=== PATIENT | male | born 1960 | race Caucasian/White ===

== ENCOUNTER → 2019-05-23 09:08 | Outpatient (BNVA) | payer BC, SELFPAY | PROVIDERS: Family Provider Family Medicine; PCP Family Medicine; Referring Provider Internal Medicine Rheumatology; Visit Provider Internal Medicine Rheumatology | DX: L40.50 Arthropathic psoriasis, unspecified (principal); Z79.899 Other long term (current) drug therapy; Z11.59 Encounter for screening for other viral diseases; Z72.89 Other problems related to lifestyle; M77.9 Enthesopathy, unspecified; M06.4 Inflammatory polyarthropathy; M72.2 Plantar fascial fibromatosis | CPT/HCPCS: 36415; 80076; 82565; 85651; 86140; 86704; 99214 ==

== ENCOUNTER → 2019-05-23 10:34 | Outpatient (BNVA) | payer BC, SELFPAY | PROVIDERS: Family Provider Family Medicine; PCP Family Medicine; Referring Provider Internal Medicine Rheumatology; Visit Provider Internal Medicine Rheumatology | DX: Z79.899 Other long term (current) drug therapy (principal); Z11.59 Encounter for screening for other viral diseases; L40.50 Arthropathic psoriasis, unspecified; Z71.89 Other specified counseling; M77.9 Enthesopathy, unspecified; M06.4 Inflammatory polyarthropathy | CPT/HCPCS: 85025 ==

== ENCOUNTER → 2019-08-23 14:05 | Outpatient (BNVA) | payer BC, SELFPAY | PROVIDERS: Family Provider Family Medicine; PCP Family Medicine; Visit Provider Internal Medicine Rheumatology | DX: L40.50 Arthropathic psoriasis, unspecified (principal); Z79.899 Other long term (current) drug therapy; R74.0 Nonspecific elevation of levels of transaminase and lactic acid dehydrogenase [LDH]; E11.9 Type 2 diabetes mellitus without complications; Z79.84 Long term (current) use of oral hypoglycemic drugs | CPT/HCPCS: 99214 ==

== ENCOUNTER 2019-11-05 14:00 | Outpatient (CLI) | payer BC, SELFPAY ==
--- NOTE | 2019-11-05 14:05 | CT_ITS ---
WS: [id number] CT LUMBAR SPINE, noncontrast. HISTORY: LOW BACK PAIN TECHNIQUE: Contiguous 2.5 mm axial imaging are performed. Sagittal and coronal reformats are submitte d and reviewed. All CT scans at [facility] use at least one of these dose optimization te chniques: automated exposure control; mA and/or kV adjustment per patient size (includes targeted exa ms where dose is matched to clinical indication); or iterative reconstruction. IV contrast: None DLP: 1988.17 mGycm COMPARISON: Lumbar spine radiograph 7 2020 S1 vertebral body is partially lumbarized. There are 5 nonrib-bearing lumbar vertebral bodies and a p artially lumbarized S1 segment. Posterior alignment is normal. No fractures. L1-2: Normal. L2-3: Normal. L3-4: Mild annular disc bulging with mild encroachment upon the thecal sac but no significant stenosi s. L4-5: Mild annular disc bulging. Mild ligamentum flavum disease and facet arthritis. Resulting in mil d central, subarticular recess and bilateral foraminal stenosis. L5-S1: Mild annular disc bulging, slightly asymmetric to the RIGHT. RIGHT subarticular and foraminal disc protrusion is suspected. There is contact on the S1 nerve roots, greatest on the RIGHT. There is mild central and subarticular recess and foraminal stenosis. Rudimentary S1-S2 disc and lumbarized Mild atherosclerosis aorta. LEFT S1 posterior elements. CT/CT lumbar spine wo con* [id number] IMPRESSION: 1. S1 is partially lumbarized. 2. Mild central, subarticular recess and bilateral foraminal stenosis at L4-5 and L5-S1. 3. Disc protrusion appears to be contacting the RIGHT S1 nerve root. Disc encr oaches into the RIGHT subarticular recess and proximal foramen.
== END 2019-11-05 14:01 | disposition home or self-care (01) ==
LOC: RADWPI 14:03
PROVIDERS: Family Provider Family Medicine; PCP Family Medicine; Visit Provider Nurse Practitioner
DX: M54.5 Low back pain (principal); Q76.49 Other congenital malformations of spine, not associated with scoliosis; M48.061 Spinal stenosis, lumbar region without neurogenic claudication; M48.07 Spinal stenosis, lumbosacral region; M53.3 Sacrococcygeal disorders, not elsewhere classified
CPT/HCPCS: 72131

== ENCOUNTER → 2021-07-28 14:05 | Outpatient (BNVA) | payer MEDICARE, SELFPAY | PROVIDERS: Family Provider Family Medicine; PCP Family Medicine; Visit Provider Internal Medicine | DX: I48.91 Unspecified atrial fibrillation (principal); I10 Essential (primary) hypertension; E66.9 Obesity, unspecified; Z68.34 Body mass index [BMI] 34.0-34.9, adult; E11.9 Type 2 diabetes mellitus without complications; G47.30 Sleep apnea, unspecified; Z79.4 Long term (current) use of insulin | CPT/HCPCS: 99214 ==

== ENCOUNTER → 2022-04-26 15:23 | Outpatient (BNVA) | payer MEDICARE, SELFPAY | PROVIDERS: Family Provider Family Medicine; PCP Family Medicine; Visit Provider Internal Medicine | DX: I10 Essential (primary) hypertension (principal); E66.9 Obesity, unspecified; Z68.35 Body mass index [BMI] 35.0-35.9, adult; G47.30 Sleep apnea, unspecified; E11.9 Type 2 diabetes mellitus without complications; Z79.4 Long term (current) use of insulin; I48.91 Unspecified atrial fibrillation | CPT/HCPCS: 99214 ==

== ENCOUNTER → 2023-02-16 11:10 | Outpatient (BNVA) | payer MEDICARE, SELFPAY | PROVIDERS: Family Provider Family Medicine; PCP Family Medicine; Visit Provider Internal Medicine Cardiovascular Disease | DX: R74.01 Elevation of levels of liver transaminase levels (principal); E11.42 Type 2 diabetes mellitus with diabetic polyneuropathy; Z79.4 Long term (current) use of insulin; G47.30 Sleep apnea, unspecified; I10 Essential (primary) hypertension; E66.9 Obesity, unspecified; I48.91 Unspecified atrial fibrillation; Z79.899 Other long term (current) drug therapy; Z68.34 Body mass index [BMI] 34.0-34.9, adult | CPT/HCPCS: 99213 ==

== ENCOUNTER → 2024-02-13 14:39 | Outpatient (BNVA) | payer MEDICARE, SELFPAY | PROVIDERS: Family Provider Family Medicine; PCP Family Medicine; Visit Provider Internal Medicine Cardiovascular Disease | DX: R07.9 Chest pain, unspecified (principal); R94.31 Abnormal electrocardiogram [ECG] [EKG] | CPT/HCPCS: 93005 ==

== ENCOUNTER 2024-10-16 | Emergency (ER) | payer MEDICARE, SELFPAY ==
--- OUTSIDE RECORDS SUMMARY | 2023-08-12 08:30 | XMS_ITS | Continuity of Care Document ---
Author Organization [facility] Address [address] [place], [place] [id number] CHADD Wang [address] Phone Care Team Providers Care Pharmacy Data Analyst Name Role Phone Mirta Batres Unavailable Unavaila ble Allergies, Adverse Reactions, Alerts Substance Reaction Status Criticality No Known Allergies Active No Inform ation Medications Medication Instructions Dosage Effective Dates (start - stop) Status Comments atorvastatin 40 mg tablet TAKE 1 TABLET BY MOUTH EVERY DAY WITH YOUR EVENING MEAL FOR CHOLESTEROL - Active aspirin 81 mg tablet,delayed release TAKE 1 TABLET BY MOUTH ONCE A DAY DIRECTED - Active Lipitor 10 mg tablet 2019 - No Longer Active Zyrtec 10 mg tablet 020 - No Longer Active Procedures Procedure Date URINALYSIS, AUTO, W/O SCOPE CDL Exam SYST BP LT 130 MM HG Sys bp less 140 DIAST BP < 80 MM HG Moseley bp less 90 WEIGHT RECORDED BODY MASS INDEX DOCD AMNT PAIN NOTED; NONE PRSNT MED LIST DOCD IN RCRD CDL Exam URINALYSIS, AUTO, W/O SCOPE CDL Exam SYST BP >= 140 MM HG6 IT DIAST BP 80-89 MM HG DSCHRG MED/CURRENT MED MERGE WEIGHT RECORDED BODY MASS INDEX DOCD URINALYSIS AUTO W/O SCOPE MED SERV GABRIELLA/WKEND/HOLIDAY OFFICE O/P EST LOW 20-29 MIN SARS & Influenza A & B combo OFFICE O/P EST SF 10-19 MIN CORONAVIRUS AG IA Results Test Name Date and Time Measure Units Reference Range Abnormal Flag Status Comments Panel Description: Urinalysis Final Bilirubin NEG N/A Negative - Large Final Blood NEG N/A Negative - Large Final Glucose NEG mg/dL Negative- >=2000 mg/dL Final Ketones NEG mg/dL Negative - Very Large Final Leukocytes NEG N/A Negative - Large Final Nitrite NEG N/A NEG (normal) - POS Final pH 5.5 N/A NML: 4 - 9; ABNL LOW: 2, 3 ABNL HIGH: 10 or above Final Protein NEG mg/dL Negative - >=300 Final Specific [place] >=1.030 N/A NNL: 1.0 03 - 1.025; ABNL Low: 1.000; ABNL High: 1.030 or abo Final Urobilinogen 0.2 E.U./dL 0.2 - >=8.0 Final Advance Directives Directive Yes / No Effective Date File Name No Information Encounters Encounter Description Practice Location Reason(s) For Visit Diagnoses Date Provider Providers Copied on Encounter [facility], [address] [place] [id number] [place] [address], [address] [place] [address] tel: [phone] [facility] Med CDL (chief complaint) Encounter for examination for driving licenseEncounter for exam of eyes and vision w abnormal findingsBody mass index [BMI] 26.0-26.9, adultElevated blood-pressure reading w/o diagnosis of HTNOverweightICD 4 Yadiel Martinsey. [address] [place] [address], [id number], [place]. tel:[phone] [facility], [address] [place] [address] [id number] [place], [address], [place] tel: [phone] [facility] Med CDL (chief complaint) Encounter for examination for driving licenseBody mass index [BMI] 25.0-25.9, adultEncounter for exam of eyes and vision w abnormal findings 2 [facility]. [address] [place] [address], [id number], [place]. tel: [phone] [facility], [address] [place] [id number] [place] [address], [facility], tel: [phone] Conversion Default- None No Information 1 [facility]. [address] [place] [address], [id number], [place]. tel: [phone] [facility], [address] [place], [place] [id number] [place] [address], [facility], [place] tel: [phone] [facility] Body mass index [BMI] 25.0-25.9, [id number] kixtBSE69Lqnwqmf er for examination for driving [id number] 1 [facility]. [address] [place] [address], [id number], [place]. tel: [phone] [facility], [address] [place] [id number] [place] [address], [facility], [place] tel: [phone] [facility] Body mass index [BMI] 24.0-24.9, [id number] [id number] [id number] vtntqhaZSL36Egqe act with and (suspected) exposure to other viral communicable [id number] 1 Justice He. [address] [place] [address], [id number], [place]. tel:[phone] OFFICE O/P EST LOW 20-29 MIN [facility], [address] [place] [id number] [place] [address], [address], [place] tel: [phone] Conversion Default- None No Information 1 Justice Ying. [address], [id number], [place]. tel:[phone] [facility], [address] [place] [id number] [place] [address], [facility], tel: [phone] [facility] Encounter for screening for other viral [id number] 0 Paul Zamora. [address] [place] [address], [address] [place] [address], . tel:[phone] OFFICE O/P EST SF 10-19 MIN [facility], [address] [place], [place] [id number] [place] [address], [facility], tel: [phone] Conversion Default- None No Information 0 Paul Zamora. [address] [place] [address], [address] [place] [address], . tel:[phone] [facility], [address] [place] [id number] [place] [address], [facility], tel: [phone] [facility] Encounter for examination for driving [id number] mass index [BMI] 24.0-24.9, mopkdISM19Jxomqj ter for immunizationICD1 0 8 [facility]. [address] [place] [address], [address] [place] [address], . tel:[phone] [facility], [address] [place] [id number] [place] [address], [facility], tel: [phone] [facility] Encounter for examination for driving [id number] 6 No Information [facility], [address] [place] [id number] [place] [address], [facility], tel: [phone] [facility] Encounter for examination for driving [id number] 6 No Information [facility], [address] [place] [id number] [place] [address], tel: [phone] [facility] Hyperuricemia 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 [address] [place] [address], [id number], . tel:[phone] [facility], [address] [place] [address] [id number] , [place], [address], tel: [phone] [facility] MrajlkVYI96Yjf back znvlURD19Gxilq jvcfkixNCE36 5 Jayson Hailee. [address] [place] [address], [id number], . [phone] Family History Family Member Type Diagnosis Age At Onset No Information Immunizations Vaccine Date Status Comments influenza, injectable, quadrivalent administered Source: Other Regist ry influenza, injectable, quadrivalent, preservative free administered Source: Other Regist ry influenza, injectable, quadrivalent, preservative free administered Source: Other Regist ry Influenza administered Note: Flu Inact sukh 10/18/2014 ; Source: New Immunization Record influenza, injectable, quadrivalent, preservative free administered Source: Other Regist ry Payers Payer name Insurance type Covered libertarian ID Authoriza tion(s) No Information Social History Type Description Quantity Date Captured Comments Alcohol Use Details Unknown Caffeine Use Details Unknown Tobacco Use Status No Information Smoking Status No Information Sex Male Sexual Orientation Straight or heterosexual Gender Identity Male Vital Signs Date / Time: Height Weight BMI Pulse Rate Blood Pressure Temperature Respiratory Rate Body Surface Area Head Circumference Head Circ. Percentile Wt./Rohit. Percentile BMI percentile Pulse Ox Inhaled Ox 1:33 PM 70.00 in 82.554 kg (182.00 lbs) 26.1 1 kg/m eter (2) 99 /min 127/76 mm[Hg] 97.50 F 18 /min 2.02 meter(2) 97 % Chief Complaint And Reason For Visit From encounter dated '08/12/2023 13:30'. CDL (chief complaint) Reason For Referral Reason For Referral No Information Plan Of Treatment Date Type Action Status Goal Td vaccine. Due on due Goal Lipid panel. Due on due Goal Zoster vaccine (). Due on due Goal Depression screening. Due on due Goal FIT. Due on due Goal Colonoscopy. Due on due Goal Hepatitis C screening. Due o n due Goal Tdap. Due on due Goal FIT-DNA. Due on due Goal FOBT. Due on due Goal ASCVD 10 year risk. Due on M due Goal Dental exam. Due on due Goal HIV screen. Due on due Goal PSA. Due on due Goal Influenza vaccine. Due on Au due Goal Lifestyle education regardin g diet completed Goal Influenza vaccine. Due on Oc due Goal Td vaccine. Due on due Goal Lipid panel. Due on due Goal Zoster vaccine (1st). Due on due Goal Unhealthy drug u se screening. Due on due Goal CT-Colonography. Due on due Goal Depression screening. Due on due Goal FIT. Due on due Goal Colonoscopy. Due on due Goal Hepatitis C screening. Due o n due Goal Tdap. Due on due Goal FIT-DNA. Due on due Goal Sigmoidoscopy. Due on due Goal FOBT. Due on due Goal Dietary manageme nt education, guidance, and counseling completed Patient Education A Healthy Lifestyle: Ca re Instructions completed Patient Education A Healthy Lifestyle: Ca re Instructions completed History Of Present Illness Encounter Date Complaint History Of Prese nt Illness CDL CDL Functional Status Date Functional Assessmen t Pain Score 0/10 Instructions Date Instruction Additional Infor mation Giving encouragement to exercise Related to Body mass index [BMI] 26.0-26.9, adult Lifestyle education regarding di et Related to Body mass index [BMI] 26.0-26.9, adult Prescribed activity/exercise edu cation Related to Body mass index [BMI] 25.0-25.9, adult Dietary management e ducation, guidance, and counseling Related to Body mass index [BMI] 25.0-25.9, adult Assessments Type Assessment Date assessment Encounter for examination for dr lu license assessment Encounter for exam of eyes and v ision w abnormal findings assessment Body mass index [BMI] 26.0-26.9, adult assessment Elevated blood-pressure reading w/o diagnosis of HTN assessment [id number] Mental Status Date Cognitive Assessment Orientation - Pitcher ed to time, place, person, situation. Patient Care Teams Name Effective Dates (start - stop) Status Members No Information
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
[2024-10-16 00:01] VITALS: BP 156/79; PULSE 82; RESP 18; TEMP 36.8; O2SAT 95; BMI 34.7
--- OUTSIDE RECORDS SUMMARY | 2024-10-16 00:15 | XMS_ITS | Encounter Summary ---
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
--- OUTSIDE RECORDS SUMMARY | 2024-10-16 00:15 | XMS_ITS | Patient Health Record ---
Author Organization [facility] [employer] Address [address] [place], [place] [address] Care Team Providers Care Product Safety Lead Name Role Phone Jesus HAILE, Luca Primary Care Provider Di HAILE, Aubrey Fung [phone] Allergies Allergen (clinical drug ingredient) Drug/Non Drug Allergy documented on EMR Reaction Allergy Type Onset Date Status costa inhibitors (uncoded) cough Allergy Active metoprolol Toprol-XL Unknown Drug Allergy Active Inderal Unknown Drug Allergy Active hydrochlorothiazide hydrochlorothiazide sun rash Drug Aller gy Active amlodipine-benazepril Unknown Drug Allergy Active ezetimibe / simvastatin Vytorin myalgia Drug Allergy Active Reason For Referral No Information Medications Medication SIG (Take, Route, Frequency, Duration) Notes Start Date End Date Status losartan 50 mg 1 tab(s) orally 2 ti mes a day 09/05/2023 Active magnesium oxide 250 mg 2 tab(s) orally o nce a day; Duration: 14 day(s) Active metFORMIN 500 mg 1 tab(s) orally 2 ti mes a day 09/05/2023 Active Vitamin B-12 5000 mcg 1 tab(s) sublingua lly once a day Active Aleve PM 25 mg-220 mg 2 tab(s) orally on ce (at bedtime) Active chlorthalidone 25 mg 1 tab(s) orally onc e a day; Duration: 30 day(s) 09/05/2023 Active docusate sodium 100 mg 1 cap(s) orally 2 times a day Active PreserVision AREDS 2 Antioxidant Multiple Vitamins and Minerals 1 tab(s) chewed 2 times a day Active sotalol 80 mg 1 tab(s) orally 2 ti mes a day; Duration: 30 day(s) 09/05/2023 Active Acetaminophen-Hydrocodone Bitartrate 325 mg-10 mg 1 tab orally Q4-6H prn pain (max 2/day; hold within 4H of planned sleep) Active Tresiba FlexTouch 100 units/mL as directed subcutaneously once a day 09/05/2023 Active Acetaminophen-Hydrocodone Bitartrate 325 mg-10 mg 1 tab orally Q4-6H prn pain (max 2/day; hold within 4H of planned sleep) Active triamcinolone topical 0.1% 1 willard applied topically 3 times a day; Duration: 7 day(s) 09/05/2023 Active Social History Tobacco Use: Social History Observation Description Date Details (start date - stop date) Never Smoker NA - NA alcohol Question Answer Notes Did you have a drink containing alcohol in the p ast year? No Points 0 Interpretation Negative Tobacco use: Question Answer Notes : nonsmoker Problems Problem Type SNOMED Code ICD Code Onset Dates Problem Status W/U Status Risk Notes Problem Solitary sacroiliitis (708387513) Sacroiliitis, not elsewhere classified (M46.1) Active confirmed Problem Low back pain (493687783) Low back pain (M54.5) Active confirmed Problem Lumbosacral spondylosis without myelopathy (73562443) Spondylosis without myelopathy or radiculopathy, lumbar region (M47.816) Active confirmed Problem High risk drug monitoring status (547526185) nursing home (current) use of opiate analgesic (Z79.891) Active confirmed Problem Hypersomnia (17599530) Hypersomnia, unspecified (G47.10) Active confirmed Problem Sleep disorder (13273034) Other sleep disorders (G47.8) Active confirmed Problem Chronic pain (13982319) Other chronic pain (G89.29) Active confirmed Problem Psoriatic arthritis (disorder) (989954882) Arthropathic psoriasis, unspecified (L40.50) Active confirmed Problem Long-term current use of drug therapy (571568851) Other intermediate school teacher (current) drug therapy (Z79.899) Active confirmed Problem Neurogenic claudication (085153312) Spinal stenosis, lumbar region with neurogenic claudication (M48.062) Active confirmed Problem Low back pain (finding) (682495043) Vertebrogenic low back pain (M54.51) Active confirmed Vital Signs Temperature 97.7 degrees Fahrenheit 12/15/2023 Blood pressure diastolic 83 mm Hg 12/15/2023 Oximetry 94 % 12/15/2023 Height 69 in 12/15/2023 Blood pressure systolic 145 mm Hg 12/15/2023 Weight 242.4 lbs 12/15/2023 BMI 35.79 kg/m2 12/15/2023 Encounters Encounter Location Date Provider Diagnosis [facility] [address] [place], [place] [id number] 12/15/2023 Aubrey Sevilla Vertebrogenic low ba ck pain M54.51 ; Other chronic pain G89.29 and Other sleep disorders G47.8 Assessments Encounter Date Diagnosis (ICD Code) Assessment Notes Treatment Notes Treatment Clinical Notes Section Notes 12/15/2023 Vertebrogenic low back pain (ICD-10 - M54.51) Chronic axial lumbosacral spine pain plus symptoms that are consistent with radicular pain. Patient declined prior offer for possible interventional spine treatment. 12/15/2023 Other sleep disorders (ICD-10 - G47.8) Plan to continue to restrict opioid usage in relation to sleep for safety concerns. 12/15/2023 Other chronic pain (ICD-10 - G89.29) Patient reports that taking his pain medication allows him to complete light chores. Plan to continue oral opioid medication management. 02/07/2024 Other The service was provided by YEMI Mak, as part of the ongoing care plan established by Aubrey Sevilla MD, who was present in the office for direct supervision during the encounter. 12/15/2023 Other The service was provided by YEMI Mak, as part of the ongoing care plan established by Aubrey Sevilla MD, who was present in the office for direct supervision during the encounter. Plan Of Treatment No Information Insurance Providers Payer Name Payer Address Payer Phone Subscriber Number Group Number Insured Name Patient Relationship to Insured Coverage Start Date Coverage End Date [employer] [address] [address] [place] [address] [id number] Ulisses Miller Self - patient is the insured Medical (General) History Medical History History ICD Code Chronic pain Low back pain Bilateral leg paresthesia Lumbar spondylosis, disc dis ease, spinal stenosis and bilateral S1 nerve root involvement as noted upon review of prior imaging study report Partial lumbarization of S1 as noted upon review of prior imaging study report Sacroiliitis Psoriatic arthritis Polyarthritis, inflammatory Seronegative arthritis Enthesitis Bone spurs in feet and back Left side rib pain Neuropathy Atrial fibrillation Hypertension Hypoglycemia Type 2 diabetes mellitus Diabetes mellitus, uncontrolled Right upper quadrant abdominal pain Generalized anxiety disorder Hyperlipidemia Hypertension Hypokalemia Sleep disorder with some hypersomnia Obesity, moderate Surgical History Surgery Date(Month/Year) Left meniscus repair, performed at [facility] randee Farfan, 2004 Hospitalization History Reason Date(Month/Year) A-fib, treated at [facility], 04/2012
--- OUTSIDE RECORDS SUMMARY | 2024-10-16 00:15 | XMS_ITS | Clinical Summary ---
Author Organization [facility] Address [address] [place] [address] Phone Care Team Providers Care Cattle And Wheat Farmer Name Role Phone Luca Lee MD Primary Care Provider Allergies Active Allergy Reactions Criticality Noted Date Comments Amlodipine-Atorvastatin Swelling Low 01/24/2013 Telmisartan Swelling Low 01/24/2013 Medications verapamil ER 24 hour (VERELAN) 360 mg capsule Take 360 mg by mouth daily. Active OTHER 1 Tab daily. Triamin Active nebivolol (BYSTOLIC) 20 mg Tablet Take 20 mg by mouth daily. Active Social History Tobacco Use Types Packs/Day Years Used Date Smoking Tobacco: Never Alcohol Use Standard Drinks/Week Comments No 0 (1 standard drink = 0.6 oz pur e alcohol) Sex and Gender Information Value Date Recorded Sex Assigned at Not on file Legal Sex Male 3:58 AM GAS MAKER Gender Identity Not on file Sexual Orientation Not on file Last Filed Vital Signs Vital Sign Reading Time Taken Comments Blood Pressure 103/65 01/24/2013 12:44 PM GAS MAKER Pulse 101 01/24/2013 11:00 AM GAS MAKER Temperature 39 C (102.2 F) 01/24/2013 12:44 PM GAS MAKER Respiratory Rate - - Oxygen Saturation 93% 01/24/2013 12:35 PM GAS MAKER Inhaled Oxygen Concentration - - Weight 47.2 kg (104 lb 1.6 oz) 01/24/2013 10:07 AM GAS MAKER Height 175.3 cm (5' 9 ) 01/24/2013 10:07 AM GAS MAKER Body Mass Index 15.37 01/24/2013 10:07 AM GAS MAKER Plan of Treatment Health Maintenance Due Date Last Done Comments DTAP/TDAP/TD VACCINES (1 - Tdap) 08/25/1978 COLORECTAL SCREENING 08/25/2004 Colorectal Cancer Screening 08/25/2004 FIT-DNA Q 3 years 08/25/2004 FIT/FOBT Q 1 year 08/25/2004 Flex Sig/CT Colonography Q 5 years 08/25/2004 PNEUMOCOCCAL VACCINE 50+ YEARS (1 of 1 - PCV) 08/26/19 10 ZOSTER VACCINE (1 of 2) 08/25/2009 INFLUENZA VACCINE (#1) 2024 RSV VACCINE (60+ or ) (1 - 1-dose 75+ series) 08/25/2034 Insurance [facility] Care Teams Cattle And Wheat Farmer Relationship Specialty Start Date End Date Luca Lee MD [address] [address] PCP - General Family Practice 01/24/13
--- OUTSIDE RECORDS SUMMARY | 2024-10-16 00:15 | XMS_ITS | Encounter Summary ---
Author Organization [employer] [facility] Address [address] [place] [address] Care Team Providers Care Chain Testing Machine Operator Name Role Phone Luca Lee MD Primary Care Provider [phone] Encounter Details Date Type Department Care Team (Latest Contact Info) Description 10/10/2001 Outpatient Historical HIS [facility] Con Rousseau MD [address] [place] [phone] HYPERTENSION NOS (Primary Dx) Social History Tobacco Use Types Packs/Day Years Used Date Smoking Tobacco: Never Assessed Sex and Gender Information Value Date Recorded Sex Assigned at Not on file Legal Sex Male 3:58 AM YARD CLERK Gender Identity Not on file Sexual Orientation Not on file documented as of this encounter Plan of Treatment Not on file documented as of this encounter Visit Diagnoses Diagnosis Unspecified essential hypertension- Primary documented in this encounter Care Teams Chain Testing Machine Operator Relationship Specialty Start Date End Date Luca Lee MD [address] [address] PCP - General Family Practice 01/24/13 documented as of this encounter
--- NOTE | 2024-10-16 00:16 | CTR_ITS ---
PROCEDURE INFORMATION: Exam: CT Abdomen And Pelvis With Contrast Exam date and time: 10/16/2024 1:05 AM Age: 64 years old Clinical indication: Abdominal pain; Other: Rlq; Additional info: Rlq abd pain TECHNIQUE: Imaging protocol: Computed tomography of the abdomen and pelvis with contrast. Radiation optimization: All CT scans at this facility use at least one of these dose optimization techniques: automated exposure control; mA and/or kV adjustment per patient size (includes targeted exams where dose is matched to clinical indication); or iterative reconstruction. Contrast material: OMNI 350; Contrast volume: 100 ml; Contrast route: INTRAVENOUS (IV); COMPARISON: CT lumbar spine wo con* [id number] 11/05/2019 2:10 PM RADIATION DOSE METRICS: Total DLP (mGy-cm): 1071.95 FINDINGS: Lungs: Few granulomatous calcifications of the lung bases. Granulomatous calcifications spleen. Liver: Normal. No mass. Gallbladder and biliary ducts: Normal. No calcified stones. No ductal dilation. Pancreas: Normal. No ductal dilation. Spleen: See Lungs finding. Adrenal glands: Normal. No mass. Kidneys and ureters: Few nonspecific although commonly benign renal cysts. Stomach and bowel: Colonic diverticulosis without definite significant acute changes. Appendix: No evidence of appendicitis. Intraperitoneal space: Unremarkable. No free air. No significant fluid collection. Vasculature: Aortic atherosclerosis. Lymph nodes: Unremarkable. No enlarged lymph nodes. Urinary bladder: Unremarkable as visualized. Reproductive: Unremarkable as visualized. Bones/joints: [id number] degenerative changes of vertebral bodies with spurring and disc space narrowing. Soft tissues: Fat containing right hernia. CT/CT abdomen pelvis w con* [id number] IMPRESSION: No definite acute abdominopelvic abnormality. Aortic atherosclerosis. COMMENTS: Consistent with the [place] [employer]'s Incidental Findings Committee white paper (J Am Kaylyn Radiol 2018): Any incidental renal lesion less than 1 cm or classified as too small to characterize, or any incidental cystic renal lesion characterized as simple-appearing, is likely benign. No follow-up imaging is recommended for these lesions per consensus recommendations based on imaging criteria.
--- OUTSIDE RECORDS SUMMARY | 2024-10-16 00:16 | XMS_ITS | Encounter Summary ---
Author Organization [facility] Address [address] [place] [address] Care Team Providers Care Tar Kettle Runner Name Role Phone Luca Lee MD Primary Care Provider [phone] Encounter Details Date Type Department Care Team (Latest Contact Info) Description 01/03/2001 Outpatient Historical HIS [facility] Daniel Holguin MD [address] [place] [address] Headache(784.0) (Primary Dx); Unspecified essential hypertension Social History Tobacco Use Types Packs/Day Years Used Date Smoking Tobacco: Never Assessed Sex and Gender Information Value Date Recorded Sex Assigned at Not on file Legal Sex Male 3:58 AM LAY OUT HELPER Gender Identity Not on file Sexual Orientation Not on file documented as of this encounter Plan of Treatment Not on file documented as of this encounter Visit Diagnoses Diagnosis Headache(784.0)- Primary Headache Unspecified essential hypertension documented in this encounter Care Teams Tar Kettle Runner Relationship Specialty Start Date End Date Luca Lee MD [address] [phone] PCP - General Family Practice 01/24/13 documented as of this encounter
--- OUTSIDE RECORDS SUMMARY | 2024-10-16 00:16 | XMS_ITS | Encounter Summary ---
Author Organization [employer] [facility] [facility] Address [address] [place] [address] Care Team Providers Care Fixed Wing Aircraft Crew Chief Name Role Phone Luca Lee MD Primary Care Provider [phone] Encounter Details Date Type Department Care Team (Latest Contact Info) Description 09/09/2000 Outpatient Historical HIS [facility] Con Rousseau MD [address] [place] [phone] Unspecified essential hypertension (Primary Dx) Social History Tobacco Use Types Packs/Day Years Used Date Smoking Tobacco: Never Assessed Sex and Gender Information Value Date Recorded Sex Assigned at Not on file Legal Sex Male 3:58 AM FINE ARTS PACKER Gender Identity Not on file Sexual Orientation Not on file documented as of this encounter Plan of Treatment Not on file documented as of this encounter Visit Diagnoses Diagnosis Unspecified essential hypertension- Primary documented in this encounter Care Teams Fixed Wing Aircraft Crew Chief Relationship Specialty Start Date End Date Luca Lee MD [address] [phone] PCP - General Family Practice 01/24/13 documented as of this encounter
--- OUTSIDE RECORDS SUMMARY | 2024-10-16 00:16 | XMS_ITS | Clinical Summary ---
Author Organization [facility] [facility] Address [address] [facility] Attn: Epic Prelude ADT SANDRA MITCHELL [address] Care Team Providers Care Escalator Installer Name Role Phone Luca Lee MD Primary Care Provider [phone] Allergies Active Allergy Reactions Criticality Noted Date Comments Amlodipine-Atorvastatin Swelling Low 01/24/2013 Telmisartan Swelling Low 01/24/2013 Social History Tobacco Use Types Packs/Day Years Used Date Smoking Tobacco: Never Alcohol Use Standard Drinks/Week Comments No 0 (1 standard drink = 0.6 oz pur e alcohol) Sex and Gender Information Value Date Recorded Sex Assigned at Not on file Legal Sex Male 1:04 PM GLOBAL IMPLEMENTATION MANAGER Gender Identity Not on file Sexual Orientation Not on file Plan of Treatment Health Maintenance Due Date [...] ) (1 - 1-dose 75+ series) 08/25/2034 Care Teams Escalator Installer Relationship Specialty Start Date End Date Luca Lee MD [address] [facility] [address] [place] [phone] PCP - General Family Practice 01/24/13
--- OUTSIDE RECORDS SUMMARY | 2024-10-16 00:16 | XMS_ITS | Encounter Summary ---
Author Organization [facility] Address [address] [place] [address] Care Team Providers Care Scooping Machine Tender Name Role Phone Luca Lee MD Primary Care Provider Encounter Details Date Type Department Care Team (Latest Contact Info) Description 08/17/2000 Outpatient Historical HIS [facility] Misha Siegel NO ADDRESS ON FILE Unspecified essential hypertension (Primary Dx); Chest pain, unspecified Social History Tobacco Use Types Packs/Day Years Used Date Smoking Tobacco: Never Assessed Sex and Gender Information Value Date Recorded Sex Assigned at Not on file Legal Sex Male 3:58 AM PLASTIC HOSPITAL 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
--- OUTSIDE RECORDS SUMMARY | 2024-10-16 00:16 | XMS_ITS | Encounter Summary ---
Author Organization [facility] Address [address] [place] [address] Care Team Providers Care Center Manager Name Role Phone Luca Lee MD Primary Care Provider [phone] Encounter Details Date Type Department Care Team (Latest Contact Info) Description 03/17/2001 Outpatient Historical HIS [facility] Con Rousseau MD [address] [place] [phone] HEMATURIA (Primary Dx) Social History Tobacco Use Types Packs/Day Years Used Date Smoking Tobacco: Never Assessed Sex and Gender Information Value Date Recorded Sex Assigned at Not on file Legal Sex Male 3:58 AM STAFF SOFTWARE ENGINEER Gender Identity Not on file Sexual Orientation Not on file documented as of this encounter Plan of Treatment Not on file documented as of this encounter Visit Diagnoses Diagnosis Hematuria- Primary documented in this encounter Care Teams Center Manager Relationship Specialty Start Date End Date Luca Lee MD [address] [phone] PCP - General Family Practice 01/24/13 documented as of this encounter
--- OUTSIDE RECORDS SUMMARY | 2024-10-16 00:16 | XMS_ITS | Encounter Summary ---
Author Organization [employer] [facility] Address [address] [place] [address] Care Team Providers Care Signs And Displays Salesperson Name Role Phone Luca Lee MD Primary Care Provider [phone] Encounter Details Date Type Department Care Team (Latest Contact Info) Description 2000 Outpatient Historical HIS [facility] Con Rousseau MD [address] [place] [phone] Other and unspecified angina pectoris (Primary Dx); Screening for thyroid disorder; Screening for lipoid disorders; Screening for other and unspecified endocrine, nutritional, metabolic, and immunity disorders Social History Tobacco Use Types Packs/Day Years Used Date Smoking Tobacco: Never Assessed Sex and Gender Information Value Date Recorded Sex Assigned at Not on file Legal Sex Male 3:58 AM STEAMER TENDER Gender Identity Not on file Sexual Orientation Not on file documented as of this encounter Plan of Treatment Not on file documented as of this encounter Visit Diagnoses Diagnosis Other and unspecified angina pectoris- Primary Screening for thyroid disorder Screening for lipoid disorders Screening for other and unspecified endocrine, nutritional, metabolic, and immunity disorders documented in this encounter Care Teams Signs And Displays Salesperson Relationship Specialty Start Date End Date Luca Lee MD [address] [phone] PCP - General Family Practice 01/24/13 documented as of this encounter
--- OUTSIDE RECORDS SUMMARY | 2024-10-16 00:16 | XMS_ITS | Encounter Summary ---
Author Organization [employer] [facility] Address [address] [place] [address] Care Team Providers Care Branch Operation Evaluation Manager Name Role Phone Luca Lee MD Primary Care Provider [phone] Encounter Details Date Type Department Care Team (Latest Contact Info) Description 02/24/2001 Outpatient Historical HIS [facility] Con Rousseau MD [address] [place] [phone] HYPERTENSION NOS (Primary Dx) Social History Tobacco Use Types Packs/Day Years Used Date Smoking Tobacco: Never Assessed Sex and Gender Information Value Date Recorded Sex Assigned at Not on file Legal Sex Male 3:58 AM MEDICAL SUPPORT ASSISTANT Gender Identity Not on file Sexual Orientation Not on file documented as of this encounter Plan of Treatment Not on file documented as of this encounter Visit Diagnoses Diagnosis Unspecified essential hypertension- Primary documented in this encounter Care Teams Branch Operation Evaluation Manager Relationship Specialty Start Date End Date Luca Lee MD [address] [phone] PCP - General Family Practice 01/24/13 documented as of this encounter
--- OUTSIDE RECORDS SUMMARY | 2024-10-16 00:16 | XMS_ITS | Encounter Summary ---
Author Organization [facility] Address [address] [place] [address] Care Team Providers Care Program Planner Name Role Phone Luca Lee MD Primary Care Provider [phone] Encounter Details Date Type Department Care Team (Latest Contact Info) Description 08/24/2000 Outpatient Historical HIS [facility] Misha Siegel NO ADDRESS ON FILE Chest pain, unspecified (Primary Dx); Unspecified essential hypertension Social History Tobacco Use Types Packs/Day Years Used Date Smoking Tobacco: Never Assessed Sex and Gender Information Value Date Recorded Sex Assigned at Not on file Legal Sex Male 3:58 AM WANT AD SUPERVISOR Gender Identity Not on file Sexual Orientation Not on file documented as of this encounter Plan of Treatment Not on file documented as of this encounter Visit Diagnoses Diagnosis Chest pain, unspecified- Primary Unspecified essential hypertension documented in this encounter Care Teams Program Planner Relationship Specialty Start Date End Date Luca Lee MD [address] [facility] [address] [place] [address] PCP - General Family Practice 01/24/13 documented as of this encounter
--- NOTE | 2024-10-16 00:18 | W.ED.ABDPA2 ---
HPI - Abdominal Pain General: Chief Complaint: Abdominal Pain Stated Complaint: abdomen pain Time Seen by Provider: 10/16/24 00:12 History of Present Illness: Patient comes in by EMS with abdominal pain. States he was seen at urgent care earlier today for what he describes as lower abdominal pain that is sharp, constant, radiates into the right lower quadrant. States he is also had some mild dysuria with it. States that the urgent care they tested his urine and told him he had a UTI and started him on amoxicillin. States he comes in tonight because the pain is worse. Associated with nausea. On physical exam he has tenderness to palpation his right lower quadrant. He also has blood in his urine. Will check labs, CT abdomen pelvis with IV contrast, give IV fluids, and reassess. Associated Symptoms: Reports nausea Related Data Home Medications ?Medication ?Instructions ?Recorded ?Confirmed albuterol sulfate 90 mcg/actuation 2 puff inhalation Q6H PRN 05/22/19 02/13/24 aerosol inhaler (Ventolin HFA) metformin 500 mg tablet 500 mg PO BID 05/22/19 02/13/24 semaglutide 0.25 mg or 0.5 mg (2 mg SUBCUT 07/28/21 02/13/24 mg/1.5 mL) subcutaneous pen injector (Ozempic) insulin detemir U-100 100 unit/mL 24 unit SUBCUT BID 02/13/24 02/13/24 (3 mL) subcutaneous pen (Levemir FlexTouch U-100 Insulin) Previous Rx's ?Medication ?Instructions ?Recorded chlorthalidone 25 mg tablet 25 mg PO DAILY #90 tabs 03/25/20 losartan 50 mg tablet See Rx Instructions .Route 01/30/24 .COMPLEX #180 tabs sotalol 80 mg tablet 80 mg PO BID #180 tabs 05/09/24 levofloxacin 500 mg tablet 500 mg PO DAILY 5 days #5 tabs 10/16/24 Allergies Allergy/AdvReac Type Severity Reaction Status Date / Time apremilast (From Otezla) Allergy Severe high blood Verified 02/13/24 14:02 pressure sulfasalazine AdvReac Intermediate nausea, Verified 02/13/24 14:02 vomiting, diarrhea and felt bad. DAVID Inhibitors AdvReac Unknown Verified 02/13/24 14:02 Beta-Blockers AdvReac Unknown Verified 12/02/24 14:02 (Beta-Adrenergic Bloc Review of Systems GI: Reports: abdominal pain and nausea PFSH ED PFSH: Medical History (Updated 10/16/24 @ 01:32 by Bogdan Irving MD) Transaminitis Psoriasis Peripheral neuropathy Sleep apnea Essential hypertension Obesity Atrial fibrillation Diverticulitis Type 2 diabetes mellitus History of cardioversion High risk medication use Immunization counseling Enthesitis Psoriatic arthritis Surgical History History of knee surgery Family History Other CAD (coronary artery disease) Heart attack Hypertension Lupus Rheumatoid arthritis Stroke Social History Smoking and tobacco/nicotine status: never used tobacco/nicotine Alcohol intake: never Substance/Drug Use: never Physical Exam Const: COMMON NORMALS: patient oriented x3 and healthy appearing HENMT: COMMON NORMALS: normocephalic and atraumatic HEAD & SCALP: normocephalic and atraumatic Neck/C-Spine: COMMON NORMALS: full ROM and supple Resp: COMMON NORMALS: normal respiratory effort, No retractions and No use of accessory muscles Cardio: COMMON NORMALS: regular rate and regular rhythm RATE: regular rate RHYTHM: regular rhythm GI: OTHER: Tenderness to palpation in the right lower quadrant Extremity: COMMON NORMALS: normal to inspection and full ROM Neuro: COMMON NORMALS: patient oriented x3 Psych: COMMON NORMALS: mental status grossly normal and cooperative Course Vital Signs: Vital signs: Vital Signs Temperature 98.2 F 10/16/24 00:01 Pulse Rate 77 10/16/24 01:23 Respiratory Rate 18 10/16/24 01:23 Blood Pressure 120/64 10/16/24 01:23 Pulse Oximetry 94 10/16/24 01:23 Oxygen Delivery Me thod Room Air 10/16/24 01:23 MDM - Abdominal Pain Medical Decision Making On reassessment I talked to the patient about his test results. His CT is unremarkable. His white blood cell count was mildly elevated at 14, and his urine is suspicious for acute cystitis with hematuria. I am concerned for early pyelonephritis. Will have him stop the amoxicillin. Will switch him over to Levaquin 500 mg p.o. daily for 5 days, and discharged with precautions return for worsening or changing symptoms. Lab Data 10/16/24 00:26 10/16/24 00:26 Labs/Radiology: Radiology Impressions Abdomen/Pelvis CT 10/16/24 00:16 IMPRESSION: No definite acute abdominopelvic abnormality. Aortic atherosclerosis. COMMENTS: Consistent with the [employer]'s Incidental Findings Committee white paper (J Am Kaylyn Radiol 2018): Any incidental renal lesion less than 1 cm or classified as too small to characterize, or any incidental cystic renal lesion characterized as simple-appearing, is likely benign. No follow-up imaging is recommended for these lesions per consensus recommendations based on imaging criteria. Laboratory Results WBC 14.73 10^3/uL (3.29-11.43) H 10/16/24 00:26 RBC 5.23 10^6/uL (3.85-5.65) 10/16/24 00:26 Hgb 14.90 g/dL (11.27-16.99) 10/16/24 00:26 Hct 44.1 % (37-53) 10/16/24 00: MCV 84.3 fl (82-101) 10/16/24 00:26 MCH 28.5 pg (27-33) 10/16/24 00: MCHC 33.8 g/dL (30-55) 10/16/24 00:26 RDW 13.4 % (12.1-15.1) 10/16/24 00:26 Plt Count 161 10^3/cmm (157-399) 10/16/24 00:26 MPV 11.1 fL (7.4-10.4) H 10/16/24 00:26 Neut % (Auto) 83.1 % 10/16/24 00:26 Lymph % (Auto) 7.1 % 10/16/24 00:26 [place] % (Auto) 8.4 % 10/16/24 00:26 Eos % (Auto) 0.6 % 10/16/24 00:26 Baso % (Auto) 0.3 % 10/16/24 00:26 Neut # (Auto) 12.24 10^3/uL (1.8-7.7) H 10/16/24 00:26 Lymph # (Auto) 1.0 10^3/uL (0.8-4.8) 10/16/24 00:26 [place] # (Auto) 1.2 10^3/uL (0.2-0.9) H 10/16/24 00:26 Eos # (Auto) 0.1 10^3/uL (0.0-0.8) 10/16/24 00:26 Baso # (Auto) 0.1 10^3/uL (0.0-0.1) 10/16/24 00:26 Nucleated RBC % (auto) 0 % 10/16/24 00: Nucleated RBCs # 0.0 /100WBC 10/16/24 00:26 Sodium 136 mmol/L (136-145) 10/16/24 00: Potassium 3.2 mmol/L (3.5-5.1) L 10/16/24: Chloride 98 mmol/L (98-107) 10/16/24 00: Carbon Dioxide 25 mmol/L (22-29) 10/16/24 00: Anion Gap 16.2 (5-19) 10/16/24 00: BUN 22 mg/dL (8-23) 10/16/24 00: Creatinine 1.4 mg/dL (0.7-1.2) H 10/16/24 00:26 GFR Calculation 50.9 mL/min (90-130) L 10/16/24 00: Glucose 227 mg/dL (65-115) H 10/16/24 00:26 Calculated Osmolality 292 mOsm/kg (285-295) 10/16/24: Calcium 9.0 mg/dL (8.5-10.5) 10/16/24 00:26 Total Bilirubin 0.7 mg/dL (0.15-1.2) 10/16/24 00:26 AST 15 U/L (0-40) 10/16/24 00:26 ALT 26 U/L (0-41) 10/16/24 00:26 Alkaline Phosphatase 76 U/L (40-130) 10/16/24 00:26 Total Protein 7.4 g/dL (6.6-8.7) 10/16/24 00:26 Albumin 3.7 g/dL (3.5-5.2) 10/16/24: Globulin 3.7 g/dL (1.3-4.6) 10/16/24 00:26 Lipase 40 U/L (13-60) 10/16/24 00:26 Urine Color Red (Yellow) A 10/16/24 00:04 Urine Appearance Turbid (CLEAR) A 10/16/24 00:04 Urine pH 5.0 (5-7) 10/16/24 00:04 Ur Specific Rush 1.028 (1.005-1.030) 10/16/24 00:04 Urine Protein 3+ (Negative) A 10/16/24 00:04 Urine Glucose (UA) 1+ (Normal) H 10/16/24 00:04 Urine Ketones Negative (Negative) 10/16/24 00:04 Urine Blood 3+ (Negative) A 10/16/24 00: Urine Nitrate Negative (Negative) 10/16/24 00: Urine Bilirubin 2+ (Negative) H 10/16/24 00:04 Urine Urobilinogen 1.0 mg/dL (Negative) 10/16/24 00:04 Ur Leukocyte Esterase 2+ (Negative) A 10/16/24 00:04 Urine RBC >100 /hpf (0-2) H 10/16/24 00:04 Urine WBC >100 /hpf (0-5) H 10/16/24 00:04 Ur Squamous Epith Cells 0-5 /hpf (0-5) 10/16/24 00:04 Amorphous Sediment Not Reportable 10/16/24 00:04 Urine Bacteria 2+ /hpf (NONE) H 10/16/24 00:04 Hyaline Casts 2.29 /lpf 10/16/24 00:04 Urine Mucus 2+ /hpf 10/16/24 00:04 Urine Sperm 1+ /hpf 10/16/24 00:04 All radiology interpretation(s) finalized by discharge Discharge Plan Discharge Patient Disposition: Home Clinical Impression: Urinary tract infection, Hematuria Condition: Stable Prescriptions: New levofloxacin 500 mg tablet 500 mg PO DAILY 5 Days Qty: 5 0RF No Action Ozempic 0.25 mg or 0.5 mg(2 mg/1.5 mL) pen injector SUBCUT Levemir FlexTouch U100 Insulin 100 unit/mL (3 mL) insulin pen 24 unit SUBCUT BID albuterol sulfate [Ventolin HFA] 90 mcg/actuation HFA aerosol inhaler 2 puff INHALATION Q6H PRN metformin 500 mg tablet 500 mg PO BID chlorthalidone 25 mg tablet 25 mg PO DAILY Qty: 90 0RF losartan 50 mg tablet See Rx Instructions .ROUTE .COMPLEX Qty: 180 3RF Dose Instruction: Take 1 tablet by mouth twice daily Rx Instructions: Take 1 tablet by mouth twice daily sotalol 80 mg tablet 80 mg PO BID Qty: 180 3RF Discharge Orders: Discharge ED (Routine); Ordered 10/16/24 Ordered By: Bogdan Irving Referrals: Luca Lee MD [Primary Care Provider, Family Practice] Patient Instructions: Patient Portal & Sai Instructions, Pyelonephritis Print Language: [place] Coding Level of Care Code ED [employer]tration [employer] for Johan Flores
[2024-10-16 00:24] LABS: Glucose Urine UA 1+ (Normal); Nitrate Urine Negative (Negative); Specific Gravity, Urine 1.028 (1.005-1.030)
[2024-10-16 00:29] LABS: Add Urine Microscopic? YES
[2024-10-16 00:31] LABS: Hematocrit 44.1 % (37-53); Hemoglobin 14.90 g/dL (11.27-16.99); Mean Corpuscular HGB Conc 33.8 g/dL (30-55); Mean Corpuscular Hemoglobin 28.5 pg (27-33); Mean Corpuscular Volume 84.3 fl (82-101); Nucleated Red Blood Cells % 0 %; Platelet Count 161 10^3/cmm (157-399); Red Blood Count 5.23 10^6/uL (3.85-5.65); White Blood Count 14.73 10^3/uL (3.29-11.43)
[2024-10-16 00:37] LABS: UA Slide Review UA Slide Review Perf
[2024-10-16 00:46] LABS: Alanine Aminotransferase 26 U/L (0-41); Albumin Level 3.7 g/dL (3.5-5.2); Alkaline Phosphatase 76 U/L (40-130); Anion Gap 16.2 (5-19); Aspartate Amino Transferase 15 U/L (0-40); Blood Urea Nitrogen 22 mg/dL (8-23); Calcium 9.0 mg/dL (8.5-10.5); Carbon Dioxide 25 mmol/L (22-29); Chloride 98 mmol/L (98-107); Creatinine Clr Calc Pharmacy 63.2869; Globulin 3.7 g/dL (1.3-4.6); Glucose 227 mg/dL (65-115); Lipase 40 U/L (13-60); Osmolality Calculated 292 mOsm/kg (285-295); Potassium 3.2 mmol/L (3.5-5.1); Sodium 136 mmol/L (136-145); Total Protein 7.4 g/dL (6.6-8.7)
[2024-10-16] MEDS: iohexol 350 mg/mL 500 mL Btl (per mL) IV (01:08)
[2024-10-16 01:23] VITALS: BP 120/64; PULSE 77; RESP 18; O2SAT 94
[2024-10-16 03:00] VITALS: BP 132/78; PULSE 74; RESP 16; O2SAT 96
== END 2024-10-16 02:25 | disposition home or self-care (01) ==
PROVIDERS: Emergency Provider Emergency Medicine; Family Provider Family Medicine; PCP Family Medicine
DX: N39.0 Urinary tract infection, site not specified (principal); R31.9 Hematuria, unspecified; Z79.84 Long term (current) use of oral hypoglycemic drugs; E11.42 Type 2 diabetes mellitus with diabetic polyneuropathy
CPT/HCPCS: 51798; 74177; 80053; 81001; 83690; 85025; 87077; 87086; 87186; 96360; 99285; J7030; J9999

== ENCOUNTER → 2025-02-14 14:39 | Outpatient (BNVA) | payer MEDICARE, SELFPAY | PROVIDERS: Family Provider Family Medicine; PCP Family Medicine; Visit Provider Internal Medicine Cardiovascular Disease | DX: I10 Essential (primary) hypertension (principal); I48.91 Unspecified atrial fibrillation | CPT/HCPCS: 99214 ==